=== PATIENT | male | born 1960 | race Caucasian/White ===

== ENCOUNTER 2022-11-08 04:42 | Day surgery (SDC) | payer OTHER, SELFPAY ==
[2022-10-25 14:18] VITALS: BMI 34.2
[2022-11-08 08:18] VITALS: BP 155/86; PULSE 70; RESP 18; TEMP 36.3; O2SAT 98
[2022-11-08] MEDS: LACTATED RINGERS 1,000 ML 150 ML IV CONT (08:26)
--- NOTE | 2022-11-08 08:36 | P.PNAN_ITS ---
Anes - Initial Pre Proc Eval Procedure: Operation Date: 11/08/22 09:00 Proposed Procedures p Screening Colonoscopy - Thompson Barone MD Date/Time: 11/08/22 08:36 Surgeon: Thompson Barone MD Pre Op Diagnosis: neoplasm screening Patient Data Age: 61 Gender: M Height: 1.8 m Weight: 108.6 kg Last Vital Signs Temp 97.3 F L 11/08/22 08:18 Pulse 70 11/08/22 08:18 Resp 18 11/08/22 08:18 BP 155/86 H 11/08/22 08:18 Pulse Ox 98 11/08/22 08:18 O2 Del Method Room Air 11/08/22 08:18 Allergies Allergy/AdvReac Type Severity Reaction Status Date / Time lisinopril AdvReac Cough Verified 11/08/22 08:15 Home Medications Medication Instructions Recorded Confirmed Type amlodipine 10 mg tablet 10 mg PO DAILY 10/25/22 11/08/22 History duloxetine 60 mg capsule,delayed 60 mg PO DAILY 10/25/22 11/08/22 History release hydrochlorothiazide 50 mg tablet 50 mg PO DAILY 10/25/22 11/08/22 History lisdexamfetamine 60 mg capsule 60 mg PO DAILY 10/25/22 11/08/22 History (Vyvanse) meloxicam 15 mg tablet 15 mg PO DAILY 10/25/22 11/08/22 History nebivolol 10 mg tablet 10 mg PO DAILY 10/25/22 11/08/22 History tamsulosin 0.4 mg capsule 0.4 mg PO DAILY 10/25/22 11/08/22 History testosterone cypionate 200 mg/mL 100 mg IM 2XW 10/25/22 11/08/22 History intramuscular oil Patient hx anesthesia problems: none Family hx anesthesia problems: none Results Review: All pre-operative results and documents have been reviewed as part of the pre- operative evaluation. [facility] Social History Social History Smoking status: Never smoker Alcohol intake: current Drinks per week: 28 Substance use type: does not use Living arrangements: with family Spiritual care concerns: No Anes - Eval Final PreProcedure Day of Procedure 11/08/22 08:36 Patient weight: obese Heart: regular rate and rhythm Lungs: clear to auscultation Airway: Mallampati scale class II Neurological: alert and oriented Last oral intake: >/= 8 hours ASA classification: II Emergent: no Anesthetic plan: proceed Anesthesia type and monitoring: general GIVS and standard monitoring Results Review: All pre-operative results and documents have been reviewed as part of the pre- operative evaluation. Informed Consent: The patient's anesthetic plan and its attendant risks and benefits were discussed with the patient/family/POA. Questions were solicited and answers provided to the satisfaction of the patient/family/POA.
--- NOTE | 2022-11-08 08:46 | PM.HPGS ---
History of Present Illness History of Present Illness Consent: Risks, benefits, and alternatives have been discussed and questions answered. Patient agrees to proceed with procedure. Chief complaint: neoplasm screening Narrative: Jairo Grant is a 61 year old male here for first screening colonoscopy Review of Systems Constitutional: Constitutional: Denies headache(s) and Denies weakness Eyes: Eyes: Denies blurry vision ENT: Reports Normal hearing present, Denies headache(s) and Denies neck pain Cardiovascular: Cardiovascular: Denies chest pain and Denies dyspnea Respiratory: Respiratory: Denies dyspnea Gastrointestinal: Gastrointestinal: Reports no additional gastrointestinal complaints Genitourinary: Genitourinary: Denies dysuria Musculoskeletal: Musculoskeletal: Denies neck pain Integumentary/Breasts: Skin/Breast: Denies dry skin Neurologic: Reports Normal hearing present, Denies headache(s) and Denies weakness Psychiatric: Psychiatric: Denies anxiety Endocrine: Endocrine: Denies change in body appearance Hematologic/Lymphatic: Hematologic/Lymphatic: Denies easy bleeding Allergic/Immunologic: Allergic/Immunologic: Denies urticaria [facility] Past Medical History Medical History (Updated 11/08/22 @ 08:46 by Thompson Barone MD) Colon cancer screening Social History Social History Smoking status: Never smoker Alcohol intake: current Drinks per week: 28 Substance use type: does not use Living arrangements: with family Spiritual care concerns: No Meds Home Medications and Allergies Home Medications Medication Instructions Recorded Confirmed Type amlodipine 10 mg tablet 10 mg PO DAILY 10/25/22 11/08/22 History duloxetine 60 mg capsule,delayed 60 mg PO DAILY 10/25/22 11/08/22 History release hydrochlorothiazide 50 mg tablet 50 mg PO DAILY 10/25/22 11/08/22 History lisdexamfetamine 60 mg capsule 60 mg PO DAILY 10/25/22 11/08/22 History (Vyvanse) meloxicam 15 mg tablet 15 mg PO DAILY 10/25/22 11/08/22 History nebivolol 10 mg tablet 10 mg PO DAILY 10/25/22 11/08/22 History tamsulosin 0.4 mg capsule 0.4 mg PO DAILY 10/25/22 11/08/22 History testosterone cypionate 200 mg/mL 100 mg IM 2XW 10/25/22 11/08/22 History intramuscular oil Allergies Allergy/AdvReac Type Severity Reaction Status Date / Time lisinopril AdvReac Cough Verified 11/08/22 08:15 Vital Signs Vital Signs - 24 hr 11/08/22 08:18 Temperature 97.3 F L Pulse Rate 70 Respiratory Rate 18 Blood Pressure 155/86 H Pulse Oximetry 98 Oxygen Delivery Room Air Exam Const: General: comfortable and no acute distress HENMT: Face/Nose/Sinus: Normal nares present Eyes: General: appearance normal, both eyes and all related structures Neck: Neck: no JVD Resp: Auscultation: clear to auscultation bilaterally Cardio: Rate: regular rate Rhythm: regular rhythm GI: Inspection: non-distended GI Palp: Yes Soft to palpation Skin: General skin exam: normal color Neuro: General: gait normal Speech: normal speech Extrem: General: normal to inspection Psych: Mental Status: mental status grossly normal Assessment and Plan Assessment and plan (1) Colon cancer screening: Code(s): Z12.11 - Encounter for screening for malignant neoplasm of colon Status: Acute Assessment and Plan: colonoscopy
[2022-11-08 09:07] VITALS: BP 115/80; PULSE 70; RESP 25; O2SAT 96
[2022-11-08 09:17] VITALS: BP 143/89; PULSE 66; RESP 22; O2SAT 100
[2022-11-08 09:27] VITALS: BP 138/87; PULSE 61; RESP 25; O2SAT 97
== END 2022-11-08 09:37 | disposition home or self-care (01) ==
PROVIDERS: PCP Internal Medicine; Visit Provider Internal Medicine Gastroenterology
PROC: 0DJD8ZZ Inspection of Lower Intestinal Tract, Via Natural or Artificial Opening Endoscopic (ICD-10-PCS; CPT 45378; principal; 2022-11-08 09:00)
DX: Z12.11 Encounter for screening for malignant neoplasm of colon (principal); D12.5 Benign neoplasm of sigmoid colon; D12.8 Benign neoplasm of rectum; K57.30 Diverticulosis of large intestine without perforation or abscess without bleeding; K64.8 Other hemorrhoids; E66.9 Obesity, unspecified; Z68.33 Body mass index [BMI] 33.0-33.9, adult
CPT/HCPCS: 45385; 88305; J2704; J7120